=== PATIENT | male | born 1950 | race Hispanic/Latino ===

== ENCOUNTER 2017-10-02 06:27 | Day surgery (SDC) | payer MEDICARE ==
[~2017-10-02] VITALS: Ht 157.5 cm; Wt 71.2 kg
[~2017-10-02 06:27] MED LIST: GLIP10TA9 PO; HYDR12.530 PO; LISI-613 PO; METF850T2 PO; METO-409 PO; SITA100T12 PO
[2017-10-02] MEDS ORDERED: SODIUM CHLORIDE 0.9% 1000ML 1,000 ML IV ONE (06:55)
[2017-10-02 06:56] LABS: BASOPHILS % (AUTO) 0.6 % (0.0-5.0); EOSINOPHILS % (AUTO) 3.4 % (0.0-8.0); HEMATOCRIT 40.7 % (42-54); LYMPHOCYTES % (AUTO) 35.5 % (21.0-51.0); MEAN CORPUSCULAR HEMOGLOBIN 27.8 pg (27.0-33.0); MEAN CORPUSCULAR VOLUME 84.3 fL (79-99); MONOCYTES % (AUTO) 6.1 % (3.0-13.0); NEUTROPHILS % (AUTO) 54.4 % (40.0-77.0); PLATELET COUNT (AUTO) 270 K/uL (130-400); RED BLOOD CELL COUNT(AUTO) 4.83 MIL/uL (4.50-6.20); RED CELL DISTRIBUTION WIDTH 14.2 % (11.0-15.5); WHITE BLOOD COUNT (AUTO) 7.2 K/uL (4.8-10.8)
[2017-10-02 06:57] VITALS: BP 141/79
[2017-10-02] MEDS ORDERED: FENTANYL CITRATE PF 50 MCG/1 ML 2ML VIAL ONE (07:29)
[2017-10-02] MEDS ORDERED: LIDOCAINE HCL 2% 20ML ONE (07:30)
[2017-10-02] MEDS ORDERED: PROPOFOL 10 MG/ML 20ML VIAL IV ONE (07:30)
[2017-10-02] MEDS ORDERED: GLYCOPYRROLATE 0.2 MG/ML 5 ML VIAL ONE (07:30)
[2017-10-02 08:48] LABS: CREATININE 0.9 mg/dL (0.5-1.5); POTASSIUM 4.8 mmol/L (3.5-5.1)
[2017-10-02 08:52] LABS: ALBUMIN 3.4 g/dL (3.5-5.0); BILIRUBIN,TOTAL 0.7 mg/dL (0.2-1.0); TOTAL PROTEIN, SERUM 6.6 g/dL (6.0-8.3)
== END 2017-10-02 08:42 | disposition home or self-care (01) ==
LOC: SUH 06:27 → DAH 06:27 → SUH 08:42
PROVIDERS: ATTEND Internal Medicine Gastroenterology
DX: K62.89 Other specified diseases of anus and rectum (principal); K59.09 Other constipation; I10 Essential (primary) hypertension; J45.909 Unspecified asthma, uncomplicated; G47.33 Obstructive sleep apnea (adult) (pediatric); E11.9 Type 2 diabetes mellitus without complications; M19.90 Unspecified osteoarthritis, unspecified site; Z82.49 Family history of ischemic heart disease and other diseases of the circulatory system
CPT/HCPCS: 36415; 45380; 80053; 82378; 82728; 82948 ×2; 85025; 88305; 93005; A4606; J2704; J3010; J3490 ×2; J7030

== ENCOUNTER 2017-10-17 07:07 | Day surgery (SDC) | payer MEDICARE ==
[~2017-10-17] VITALS: Ht 160 cm; Wt 68.8 kg
[~2017-10-17 07:07] MED LIST changes: +SODIUM CHLORIDE 0.9% 1000ML 1,000 ML IV ONE
[2017-10-17 07:58] VITALS: BP 117/61
[2017-10-17 10:58] VITALS: BP 119/62
== END 2017-10-17 12:04 | disposition home or self-care (01) ==
LOC: ENDO 07:07 → DAH 07:07 → ENDO 12:04
PROVIDERS: ATTEND Internal Medicine Gastroenterology
DX: C20 Malignant neoplasm of rectum (principal); K62.89 Other specified diseases of anus and rectum; I10 Essential (primary) hypertension; J45.909 Unspecified asthma, uncomplicated; G47.33 Obstructive sleep apnea (adult) (pediatric); E11.9 Type 2 diabetes mellitus without complications; M19.90 Unspecified osteoarthritis, unspecified site; Z82.49 Family history of ischemic heart disease and other diseases of the circulatory system
CPT/HCPCS: 45341; 82948 ×2; 93005; A4606; J7030; G9654

== ENCOUNTER → 2017-10-24 | Outpatient (CLI) | payer MEDICARE ==
[~2017-10-24] MED LIST changes: +IOPAMIDOL-370 100 ML VIAL IV ONE; -SODIUM CHLORIDE 0.9% 1000ML 1,000 ML IV ONE
== END | disposition home or self-care (01) ==
LOC: OIH 08:53
PROVIDERS: ATTEND Internal Medicine Gastroenterology
DX: C20 Malignant neoplasm of rectum (principal); K76.0 Fatty (change of) liver, not elsewhere classified; K40.90 Unilateral inguinal hernia, without obstruction or gangrene, not specified as recurrent
CPT/HCPCS: 74178; Q9967

== ENCOUNTER → 2018-01-30 | Outpatient (CLI) | payer MEDICARE ==
[~2018-01-30] MED LIST changes: -IOPAMIDOL-370 100 ML VIAL IV ONE
== END | disposition home or self-care (01) ==
LOC: SHCH 14:48
PROVIDERS: ATTEND Internal Medicine Cardiovascular Disease
DX: I10 Essential (primary) hypertension (principal)
CPT/HCPCS: 93306

== ENCOUNTER → 2018-02-05 | Outpatient (CLI) | payer MEDICARE ==
[~2018-02-05] VITALS: Ht 157.5 cm; Wt 68.0 kg
[~2018-02-05] MED LIST changes: +REGADENOSON 0.4 MG/5 ML PF SYG IVP SCH
== END | disposition home or self-care (01) ==
LOC: SHCH 02-03 09:37
PROVIDERS: ATTEND Internal Medicine Cardiovascular Disease
DX: Z01.818 Encounter for other preprocedural examination (principal); I10 Essential (primary) hypertension; E78.5 Hyperlipidemia, unspecified
CPT/HCPCS: 78452; 93017; 96374; A9500 ×2; J2785

== ENCOUNTER 2021-08-12 15:19 | Observation (INO) | payer OTHER, MEDICARE ==
[~2021-08-12] VITALS: Ht 160 cm; Wt 75.7 kg
[~2021-08-12 15:19] MED LIST changes: -LISI-613 PO; +LISI20TA24 PO; +METF-445 PO; -METF850T2 PO; -REGADENOSON 0.4 MG/5 ML PF SYG IVP SCH
[2021-08-12 16:05] LABS: BASOPHILS % (AUTO) 0.5 % (0.0-5.0); EOSINOPHILS % (AUTO) 4.3 % (0.0-8.0); HEMATOCRIT 38.3 % (42-54); LYMPHOCYTES % (AUTO) 21.9 % (21.0-51.0); MEAN CORPUSCULAR HEMOGLOBIN 28.3 pg (27.0-33.0); MEAN CORPUSCULAR HGB CONC 32.1 g/dL (32.0-36.0); MONOCYTES % (AUTO) 6.1 % (3.0-13.0); NEUTROPHILS % (AUTO) 66.9 % (40.0-77.0); PLATELET COUNT (AUTO) 190 K/uL (130-400); RED BLOOD CELL COUNT(AUTO) 4.35 MIL/uL (4.50-6.20); RED CELL DISTRIBUTION WIDTH 13.6 % (11.0-15.5); WHITE BLOOD COUNT (AUTO) 6.1 K/uL (4.8-10.8)
[2021-08-12 16:16] LABS: CARBON DIOXIDE 26 mmol/L (21-32); CHLORIDE 106 mmol/L (101-111); CREATININE 1.3 mg/dL (0.5-1.5); GLOMERULAR FILTR. RATE CALC 58 mL/min (>60); GLUCOSE,RANDOM 105 mg/dL (70-105); POTASSIUM 4.1 mmol/L (3.5-5.1); SODIUM SERUM 142 mmol/L (136-145); UREA NITROGEN, BLOOD 15 mg/dL (7-18)
[2021-08-12 16:25] LABS: ALANINE AMINOTRANSFERASE 39 U/L (12-78); ALBUMIN 3.3 g/dL (3.5-5.0); ASPARTATE AMINOTRANSFERASE 26 U/L (10-37); BILIRUBIN,TOTAL 0.5 mg/dL (0.2-1.0); TOTAL PROTEIN, SERUM 6.7 g/dL (6.0-8.3)
[2021-08-12 16:26] LABS: CRP QUANTITATIVE < 2.00 mg/L (0.00-9.0)
[2021-08-12] MEDS ORDERED: IOHEXOL-350 75 ML VIAL IV ONE (16:52)
[2021-08-12] MEDS ORDERED: ZOLPIDEM TARTRATE 5 MG TAB PO PRN (18:30)
[2021-08-12] MEDS ORDERED: 0.9%NACL 1000ML 1,000 ML IV SCH (18:30)
[2021-08-12] MEDS ORDERED: ACETAMINOPHEN 325 MG TAB PO PRN ×2 (18:30)
[2021-08-12] MEDS ORDERED: LACTULOSE 20 GM/30 ML UDCUP PO PRN (18:30)
[2021-08-12] MEDS ORDERED: ONDANSETRON 4MG INJ IV PRN (18:30)
[2021-08-12] MEDS ORDERED: NITROGLYCERIN 0.4 MG SL TAB SL PRN (18:30)
[2021-08-12] MEDS ORDERED: HYDRALAZINE 20MG/ML VIAL IV PRN (18:30)
[2021-08-12 19:04] LABS: HEMOGLOBIN A1C 8.5 % (4.0-6.0)
[2021-08-12] MEDS: FAMOTIDINE 20MG TAB PO SCH (19:40)
[2021-08-12 23:10] LABS: APPEARANCE,URINE Clear (CLEAR); BILIRUBIN,URINE Negative (NEGATIVE); COLOR,URINE Yellow (YELLOW); GLUCOSE, URINE (UA) >=1000 mg/dL (NEGATIVE); KETONES,URINE Negative (NEGATIVE); LEUKOCYTE ESTERASE ,URINE Negative (NEGATIVE); NITRATE,URINE Negative (NEGATIVE); OCCULT BLOOD,URINE Negative (NEGATIVE); PH,URINE 6.5 (5.0-8.0); PROTEIN,URINE Negative (NEGATIVE); UROBILINOGEN,URINE 0.2 mg/dL (0.2-1.0)
[2021-08-12 23:19] LABS: AMPHET/METH SCREEN,URINE NEGATIVE (NEGATIVE); BARBITURATE SCREEN, URINE NEGATIVE (NEGATIVE); BENZODIAZEPINES SCREEN,URINE NEGATIVE (NEGATIVE); CANNABINOID SCREEN,URINE NEGATIVE (NEGATIVE); COCAINE SCREEN,URINE NEGATIVE (NEGATIVE); OPIATE SCREEN,URINE NEGATIVE (NEGATIVE); PHENCYCLIDINE SCREEN,URINE NEGATIVE (NEGATIVE)
[2021-08-12 23:20] LABS: BACTERIA,URINE Rare /HPF (None Seen); RBC,URINE 0-1 /HPF (0-1); SQUAMOUS EPITHELIAL CELL,UR 0-2 /HPF (0-2); WBC,URINE 0-1 /HPF (0-1)
[2021-08-13] MEDS: FAMOTIDINE 20MG TAB PO SCH (08:47)
[2021-08-13] MEDS ORDERED: ENOXAPARIN SODIUM 40 MG/0.4 ML SYRINGE SQ SCH (09:00)
[2021-08-13] MEDS ORDERED: LISINOPRIL 20 MG TABLET PO SCH (12:00)
[2021-08-13] MEDS ORDERED: HYDROCHLOROTHIAZIDE 25 MG TABLET PO ONE (12:00)
[2021-08-13] MEDS ORDERED: METOPROLOL TARTRATE 25 MG TAB PO ONE (12:00)
[2021-08-13 13:32] VITALS: BP 153/77
== END 2021-08-13 15:30 | disposition home or self-care (01) ==
LOC: EDH 15:19 → EDHIP 18:15
PROVIDERS: ADMIT Internal Medicine; ATTEND Internal Medicine
DX: R60.0 Localized edema (principal); Z20.822 Contact with and (suspected) exposure to COVID-19; J18.1 Lobar pneumonia, unspecified organism; I10 Essential (primary) hypertension; E78.5 Hyperlipidemia, unspecified; I25.10 Atherosclerotic heart disease of native coronary artery without angina pectoris; E11.9 Type 2 diabetes mellitus without complications; E66.9 Obesity, unspecified; I89.0 Lymphedema, not elsewhere classified; E78.00 Pure hypercholesterolemia, unspecified; K57.30 Diverticulosis of large intestine without perforation or abscess without bleeding; K59.00 Constipation, unspecified; Z68.30 Body mass index [BMI] 30.0-30.9, adult; Z85.048 Personal history of other malignant neoplasm of rectum, rectosigmoid junction, and anus; Z79.84 Long term (current) use of oral hypoglycemic drugs; Z91.14 Patient's other noncompliance with medication regimen; Z79.82 Long term (current) use of aspirin; Z79.899 Other long term (current) drug therapy; R11.2 Nausea with vomiting, unspecified
CPT/HCPCS: 36415; 71045; 71250; 74177; 80053; 80305; 81001; 82948 ×3; 83036; 83880; 84484 ×2; 85025; 85378; 86140; 87635; 93005; 93971; 96361; 96372; 96374; 99285; G0378 ×21; J0360; J1650; J7030; Q9967

== ENCOUNTER 2022-08-01 19:46 | Emergency (ER) | payer OTHER, MEDICARE ==
[~2022-08-01] VITALS: Ht 157.5 cm; Wt 72.6 kg
[2022-08-01 22:55] VITALS: BP 110/65
== END 2022-08-01 23:05 | disposition home or self-care (01) ==
LOC: EDH 19:46
DX: G89.29 Other chronic pain (principal); M25.552 Pain in left hip; E11.9 Type 2 diabetes mellitus without complications; E78.00 Pure hypercholesterolemia, unspecified; I10 Essential (primary) hypertension; Z79.899 Other long term (current) drug therapy; Z79.84 Long term (current) use of oral hypoglycemic drugs; Z98.890 Other specified postprocedural states